=== PATIENT | female | born 1990 | race Caucasian/White ===

== ENCOUNTER 2021-11-27 08:29 | Emergency (ER) | payer OTHER, SELFPAY ==
[2021-11-27 08:52] VITALS: BP 123/75; PULSE 67; RESP 17; TEMP 36.4; O2SAT 96; BMI 25.8
--- NOTE | 2021-11-27 09:51 | ED_ITS ---
HPI - General Adult General Chief complaint: General Medical Stated complaint: Medication refill Time Seen by Provider: 11/27/21 09:11 Source: patient Mode of arrival: ambulatory History of Present Illness HPI narrative: 31-year-old female with past medical history of depression presenting to the ED for medication refill of Prozac 10 mg daily. Admits recently moved from [facility], has enough medication for today and tomorrow then will be out. Reports recently apply for [employer] and is trying to get PCP/therapist in the area. Denies SI/HI. Onset (ago): day(s) Related Data Previous Rx's Medication Instructions Recorded fluoxetine 10 mg capsule (Prozac) 10 mg PO DAILY #30 cap 11/27/21 Allergies Allergy/AdvReac Type Severity Reaction Status Date / Time No Known Allergies Allergy Verified 11/27/21 10:12 Review of Systems Review of Systems: Constitutional: No Fever, No Chills, No Fatigue, No Malaise ENT/Mouth: No Hearing loss, No Ear Pain, No Nasal Congestion, No Sinus Pain, No Hoarseness, No sore throat, No Rhinorrhea, No Swallowing Difficulty Eyes: No Eye Pain, No Swelling, No Redness Cardiovascular: No Chest Pain, No SOB, No Palpitations Respiratory: No Cough, No Dyspnea Gastrointestinal: No Nausea, No Vomiting, No Diarrhea, No Constipation, No Abdominal pain Genitourinary: No Dysuria, No Urinary Frequency, No Hematuria, No Flank Pain, No Urinary Flow Changes Musculoskeletal: No joint pain, No Myalgias Skin: No Skin Lesions, No rash Neuro: No Weakness, No Dizziness, No Headache Psych: No Anxiety/Panic, No Depression, No SI/HI/AH/VH Yes all other systems are reviewed and are negative [facility] Past Medical History Attestation statement: The following information was validated with the patient. Medical History Depression Social History Social History Advance Directives: No Advance Directives Information Provided: No Patient : No Physical Exam ED Vital Signs: Vital Signs - 24 hr 11/27/21 08:52 Temperature 97.5 F Pulse Rate 67 Respiratory Rate 17 Blood Pressure 123/75 Pulse Oximetry 96 BMI result Body Mass Index 25.8 Const General: cooperative, healthy appearing, no acute distress, alert and awake Orientation/consciousness: patient oriented x3 Limitations: no limitations HENMT Head: Yes normal to inspection and Yes atraumatic Ears: hearing grossly normal bilaterally General nose exam: Normal external nose present Face and sinus: Yes normal facial exam Eyes General: appearance normal, both eyes and all related structures EOM: EOMs intact bilaterally Neck Neck: Yes normal visual inspection and Yes no meningeal signs Resp Effort & Inspection: normal respiratory effort and no respiratory distress Cardio Rate: regular rate Heart sounds: S1 normal heart sound present and S2 normal heart sound present GI Inspection: Yes normal to inspection Skin Rashes: no rashes Wounds: no wounds Neuro General: patient oriented x3, tone normal and no meningeal signs Gait exam (Neuro): Normal gait present Extrem General: Yes normal to inspection Psych Appearance: grossly normal Mental Status: mental status grossly normal Speech and movement: Normal speech and movement present Affect: normal affect Attitude: cooperative Thought process: Normal thought process present Thought content: Normal thought content present Insight: Good insight present (Psych) Judgement: Good judgement present (Psych) Course Course Course Narrative: CARE team spoke with patient, patient is already taking proper steps & set her children up with PCP and can get an appointment with PCP at the end of December the soonest. Referral was made to [facility] Medical Decision Making [facility] Narrative Medical decision making narrative: 31-year-old female with past medical history of depression presenting to the ED for medication refill of Prozac 10 mg daily. On exam vital signs stable, NAD/nontoxic appearing, will touch base with care team to see if they can facilitate scheduling patient with therapist/psychiatrist in the area. Medical Records Medical records reviewed: Yes I reviewed the patient's medical records. Lab Data Lab results reviewed: Yes I reviewed the patient's lab results. Discharge Plan Discharge Clinical Impression: Medication refill Patient Disposition: Home, Self-Care Instructions: Medicine Refill (ED) Additional Instructions: Please call your primary care doctor for an appointment for her medication refills. A 30 day supply of Prozac was sent to [facility] on [address] If you have any thoughts of hurting herself or others please return to the emergency department Prescriptions: New fluoxetine [Prozac] 10 mg capsule 10 mg PO DAILY Qty: 30 0RF Referrals: [facility] [Provider Group] Puneet Cabrales MD [Physician] - Josefina Leal MD [Physician] -
--- NOTE | 2021-11-27 10:09 | MHC.CARE ---
CARE Team consulted to meet with Pt due to needing providers. Pt reports she recently relocated to [facility] and came to the ED because she ran out of medication (Prozac 10mg). Pt stated she has history of seeing a therapist at [facility] in [place] when she lived in this area. Pt stated she is going to go to [facility] for a PCP and they won't be able to get her in till the end of December. Pt reports her children will be going to [facility]. Pt would like a referral to see a therapist and gave t/w verbal persmisison to refer her to [facility].
--- NOTE | 2021-11-27 10:25 | PC.NURSE ---
CARE TEAM SPOKE WITH PATIENT ABOUT RESOURCES IN THE COMMUNITY AND THERAPISTS AVAILABLE. MOM BABY, BABY SMILING, [employer]GOR, REFLEXES INTACT, NAD.
== END 2021-11-27 10:27 | disposition home or self-care (01) ==
PROVIDERS: Emergency Provider Emergency Medicine Emergency Medical Services
DX: Z76.0 Encounter for issue of repeat prescription (principal); F33.1 Major depressive disorder, recurrent, moderate
CPT/HCPCS: 99283

== ENCOUNTER 2022-02-01 09:02 | Outpatient (REF) | payer OTHER, SELFPAY ==
[2022-02-01 14:39] LABS: CT PCR NOT DETECTED (Not Detect.); NG PCR NOT DETECTED (Not Detect.)
[2022-02-02 09:22] LABS: BV Int Neg Control Negative (Negative); BV Int Pos Control Positive (Positive)
[2022-02-04 06:46] LABS: HPV mRNA E6/E7 rflx Not Detected (Not Detected)
== END 2022-02-01 09:03 | disposition home or self-care (01) ==
LOC: HO.LAB 09:02
PROVIDERS: Advanced Practice Midwife; PCP Nurse Practitioner Family; Visit Provider Nurse Practitioner Family
DX: Z01.419 Encounter for gynecological examination (general) (routine) without abnormal findings (principal); Z11.51 Encounter for screening for human papillomavirus (HPV); Z20.2 Contact with and (suspected) exposure to infections with a predominantly sexual mode of transmission
CPT/HCPCS: 87480; 87491; 87510; 87591; 87624; 87660; 88142

== ENCOUNTER 2022-08-06 04:35 | Emergency (ER) | payer OTHER, SELFPAY ==
[2022-08-06 05:02] VITALS: BP 119/62; PULSE 77; RESP 20; TEMP 36.6; O2SAT 97; BMI 26.6
[2022-08-06 05:26] LABS: Appearance Urine Cloudy; Color Urine Yellow; Glucose Urine UA Negative (Negative); Leukocyte Esterase Urine Moderate (2+) (Negative); Nitrite Urine Negative (Negative); Specific Gravity - Urine >= 1.030 (1.005-1.025); UMIC TRIGGER UACC YES; Urine Blood Moderate (2+) (Negative); Urine Ketones Trace mg/dL (Negative); Urine Protein Trace mg/dL (Neg-Trace)
[2022-08-06 05:27] LABS: UPreg QC Valid YES; Urine Pregnancy NEGATIVE (NEGATIVE)
[2022-08-06 05:31] LABS: Bacteria Urine 1+ (None Seen); Hyaline Casts Urine 0-2 /LPF (0-2); UACC Culture Trigger YES; WBC Urine >50 /HPF (0-5)
--- NOTE | 2022-08-06 06:17 | PC.NURSE ---
Pt alert and oriented. c/o dysuria and darker appearance of urine. pt denies fever, chills, headache, radiating pain, no apparent distress
--- NOTE | 2022-08-06 06:39 | ED_ITS ---
HPI - Female Genitourinary General Chief complaint: Urogenital-Female Stated complaint: ?UTI Time Seen by Provider: 08/06/22 06:28 Source: patient Mode of arrival: ambulatory History of Present Illness HPI Narrative: 32-year-old female presents with pain and burning on urination since last night without associated nausea, vomiting, fever, chills, vaginal discharge. Related Data Previous Rx's Medication Instructions Recorded fluoxetine 10 mg capsule (Prozac) 10 mg PO DAILY #90 caps 12/29/21 nitrofurantoin 100 mg PO Q12H 5 days #10 caps 08/06/22 monohydrate/macrocrystals 100 mg capsule (Macrobid) Allergies Allergy/AdvReac Type Severity Reaction Status Date / Time No Known Allergies Allergy Verified 08/06/22 05:06 Review of Systems Review of Systems: Pertinent positives and negatives as stated in HPI. [facility] Past Medical History Source: nursing notes reviewed Medical History Depression History of depression Surgical History History of deviated nasal septum History of tubal ligation Family History Family History Father No problems noted. Mother No problems noted. Social History Social History Housing: Apartment Alcohol intake: never Patient Tobacco Use Status: Former Tobacco user Tobacco use type: Cigarette Smoked in Last 30 Days: No e-Cigarette/Vaping Use: Never Used Second Hand Smoke Exposure: No Use of substances other than those prescribed or required for medical reasons: No Advance Directives: No Advance Directives Information Provided: No Patient : No service: No Current occupational status: unemployed Sexual orientation: Straight/Heterosexual Gender identity: Female Cognitive needs: No Hearing needs: No Vision needs: No Physical Exam Vital Signs: Vital Signs: Last Vital Signs Temp 97.9 F 08/06/22 05:02 Pulse 77 08/06/22 05:02 Resp 20 08/06/22 05:02 BP 119/62 08/06/22 05:02 Pulse Ox 97 08/06/22 05:02 O2 Del Method 08/06/22 05:02 BMI result Body Mass Index 26.6 VITAL SIGNS: Reviewed. GENERAL: Well developed, well nourished, in no acute distress. HEAD: Normocephalic/atraumatic EYES: PERRLA, EOMI LUNGS: Normal breath sounds. CARDIOVASCULAR: Regular rate and rhythm without noted murmurs ABDOMEN: Soft, non-tender, non-distended with bowel sounds. NEUROLOGIC: Alert and oriented x 4. Medical Decision Making Medical Decision Making MDM Narrative: 32-year-old female with history and clinical presentation most consistent with uncomplicated UTI and I reviewed do the urinalysis results which demonstrate leukocyte esterase with presence of wbc's. She will receive her 1st dose here in the emergency room and then the remaining prescription will be sent to her pharmacy Lab Data Labs: Lab Results 08/06/22 08/06/22 Range/Units 05:16 05:16 Urine Color Yellow Urine Appearance Cloudy Urine pH 6.0 (5.0-9.0) Ur Specific Cutler >= 1.030 H (1.005-1.025) Urine Protein Trace (Neg-Trace) mg/dL Urine Glucose (UA) Negative (Negative) mg/dL Urine Ketones Trace (Negative) mg/dL Urine Blood Moderate (2+) H (Negative) Urine Nitrite Negative (Negative) Ur Leukocyte Esterase Moderate (2+) H (Negative) Urine RBC 11-20 H (0-2) /HPF Urine WBC >50 H (0-5) /HPF Ur Squamous Epith Cells 6-10 (0-2) /HPF Urine Bacteria 1+ (None Seen) Hyaline Casts 0-2 (0-2) /LPF Urine Test NEGATIVE (NEGATIVE) Discharge Plan Discharge Clinical Impression: UTI (urinary tract infection) Patient Disposition: Home, Self-Care Instructions: Urinary Tract Infection in Women (ED) Additional Instructions: Complete the entire course of antibiotics as prescribed. Return to the ER for any worsening of symptoms. Prescriptions: New nitrofurantoin monohyd/m-cryst [Macrobid] 100 mg capsule 100 mg PO Q12H 5 Days Qty: 10 0RF Rx Instructions: must administer with a meal/food No Action fluoxetine [Prozac] 10 mg capsule 10 mg PO DAILY Qty: 90 1RF
[2022-08-06] MEDS: Nitrofurantoin Monohyd/M-Cryst 100 MG CAPSULE PO (07:09)
== END 2022-08-06 07:15 | disposition home or self-care (01) ==
PROVIDERS: Emergency Provider Student in an Organized Health Care Education/Training Program
DX: N39.0 Urinary tract infection, site not specified (principal); Z79.899 Other long term (current) drug therapy
CPT/HCPCS: 81001; 81025; 87086; 99283; 99284

== ENCOUNTER 2023-03-01 11:21 | Outpatient (REF) | payer OTHER, SELFPAY | END 2023-03-01 11:22 | disposition home or self-care (01) | LOC: HO.LNP 11:21 | PROVIDERS: PCP Nurse Practitioner Family; Visit Provider Advanced Practice Midwife | DX: Z13.89 Encounter for screening for other disorder (principal) ==

== ENCOUNTER 2023-03-01 11:21 | Outpatient (AMB) | payer OTHER, SELFPAY ==
[2023-03-01 11:22] VITALS: BP 122/66; BMI 29.6
--- NOTE | 2023-03-01 11:22 | MHC.OFFVIS ---
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 Scribed for REYMUNDO Mora by Cheryl Lenz medical safety director, on 03/01/2023 at 11:34 am EST. Composing Room Machinist: Composing Room Machinist Present (Marielena) Allergies No Known Allergies Allergy (Verified 03/01/23 11:25) Is last menstrual period known: Yes Last menstrual period: 02/12/23 HPI HPI Comments History of Present Illness Details She is a premenopausal woman presenting for annual exam. She is concenred about several skin tags that she would like to have removed. She has a dermatology appt. booked. She admits to not eating as well as she had in the past, plans to improve her diet and to start exercising. Currently sexually active. Her and her partner are interested in future options despite having a tubal. Denies vaginal itching and irritation. STD screening offered; she accepts. Denies family hx of breast, colon and ovarian cancer. Last pap smear 02/01/22. Reports she quit smoking PFSH Medical History Depression History of depression Surgical History History of deviated nasal septum History of tubal ligation Family History Father No problems noted. Mother No problems noted. Social History Housing: Apartment Alcohol intake: never Patient Tobacco Use Status: Former Tobacco user Tobacco use type: Cigarette e-Cigarette/Vaping Use: Never Used Second Hand Smoke Exposure: No service: No Current occupational status: unemployed Sexual orientation: Straight/Heterosexual Gender identity: Female Cognitive needs: No Hearing needs: No Vision needs: No Female Reproductive History Menstrual Duration of menses: 6-7 days Date of last menstrual period: 02/12/23 control method: permanent sterilization Permanent Sterilization: BTL Total pregnancies: 3 Full term: 2 Number of Living Children: 2 Date of last pap smear: 02/01/22 (neg pap and hpv) Physical Exam Vital Signs: Last Vital Signs BP 122/66 03/01/23 11:22 BMI result Body Mass Index 29.6 Const General: cooperative, healthy appearing, no acute distress, well developed and alert Orientation/consciousness: patient oriented x3 HEENT Head: Yes normal to inspection Eyes General: appearance normal, both eyes and all related structures Neck Neck: Yes normal visual inspection Thyroid: Thyroid normal Chest Chest palpation & inspection: normal inspection of the chest Breast/axilla inspection: normal inspection of the breasts (no puckering, dimpling, peau de orange, retraction, discharge, masses) Breast/axilla palpation: normal palpation of the breasts Resp Effort & Inspection: normal respiratory effort GI Inspection: Yes normal to inspection Palpation (GI): Soft to palpation (to palpation) Rectal Exam - Female: deferred Other: 2 small 2-3 mm skin tags on right gluteal area. General: Yes bladder normal to inspection External Female Exam: normal external appearance and normal appearance of the urethra Speculum Exam - Vagina: normal appearance of the vagina, normal palpation and normal vaginal discharge Speculum Exam - Cervix: normal appearance of the cervix and normal palpation Bimanual exam- vagina & uterus: normal palpation and normal palpation Bimanual Exam- Adnexa, other: normal adnexae and no masses Skin General skin exam: no rashes or lesions noted Neuro General: patient oriented x3 Cognition (Neuro): normal cognition Extrem General: Yes normal to inspection Psych Attitude: cooperative Thought process: Normal thought process present Assessment & Plan Assessment & Plan (1) Encounter for well woman exam: Code(s): Z01.419 - Encounter for gynecological examination (general) (routine) without abnormal findings Plan: Discussed: Current recommendations for pap smears per ASCCP guidelines Breast awareness and periodic self breast exams. Maintaining a healthy lifestyle including a well balanced diet and routine exercise. Recommended consulting with infertility specialist regarding different birthing options with a tubal, reversals are not covered by insurance. BV testing, STD blood work and GC/CT panel today. Await results and treat accordingly. Follow up with Dermatology for skin tags, most likely a cosmetic procedure and not covered by insurance. All of her questions and concerns were addressed to the best of my ability. RTO in one year for AG. Orders: Orders Hepatitis B Core Antibody Today Z20.2 - Contact with and (suspected) exposure to infections with a predominantly sexual mode of transmission Hepatitis C Antibody Today Z20.2 - Contact with and (suspected) exposure to infections with a predominantly sexual mode of transmission HIV Ab/Ag Today Z20.2 - Contact with and (suspected) exposure to infections with a predominantly sexual mode of transmission Syphilis Screen Today Z20.2 - Contact with and (suspected) exposure to infections with a predominantly sexual mode of transmission CT NG by PCR Today Z20.2 - Contact with and (suspected) exposure to infections with a predominantly sexual mode of transmission Coding Level of Care Code Est Pt Prev Care [id number]([id number]) Diagnoses Encounter for well woman exam Z01.419
== END 2023-03-01 11:47 | disposition home or self-care (01) ==
LOC: HO.HWS 11:21
PROVIDERS: PCP Nurse Practitioner Family; Visit Provider Advanced Practice Midwife
DX: Z01.419 Encounter for gynecological examination (general) (routine) without abnormal findings (principal)
CPT/HCPCS: 99395

== ENCOUNTER 2023-03-01 11:51 | Outpatient (REF) | payer OTHER, SELFPAY ==
[2023-03-01 18:42] LABS: CT PCR NOT DETECTED (Not Detect.); NG PCR NOT DETECTED (Not Detect.)
[2023-03-02 08:42] LABS: HBc Num1 0.07 S/CO (0.00-0.79); HIV AB/AG Nonreactive (Nonreactive); HIV Num 1 0.06 S/CO (0.00-0.99); Hepatitis B Core Antibody Nonreactive (Nonreactive); ~HepC Num1 0.22 S/CO (0.00-0.79); ~Hepatitis C Antibody Nonreactive (Nonreactive)
[2023-03-02 08:54] LABS: Syphilis Screen Nonreactive (Nonreactive)
== END 2023-03-01 11:52 | disposition home or self-care (01) ==
LOC: HO.LAB 11:51
PROVIDERS: PCP Internal Medicine; Visit Provider Advanced Practice Midwife
DX: Z11.4 Encounter for screening for human immunodeficiency virus [HIV] (principal); Z20.2 Contact with and (suspected) exposure to infections with a predominantly sexual mode of transmission
CPT/HCPCS: 0353U; 86704; 86780; 86803; 87389

== ENCOUNTER 2023-09-09 09:51 | Outpatient (AMB) | payer OTHER, SELFPAY ==
[2023-09-09 09:51] VITALS: BP 98/80; PULSE 69; O2SAT 98; BMI 31.0
--- NOTE | 2023-09-09 09:51 | MHC.PC.OV ---
Vital Signs 09/09/23 09:51 Height 5 ft 7 in Weight 198 lb 4 oz BMI 31.0 BP 98/80 Blood Pressure Location Lt brachial Position Sitting Pulse 69 Pulse Source Pulse Oximeter Pulse Oximetry (%) 98 Oxygen Delivery Method Room Air Intake Visit Reasons: office visit Assistant Product Manager Required: No Accompanied by: Self / Same As Patient Allergies No Known Allergies Allergy (Verified 09/09/23 10:18) Medication List - Last Reconciled 09/09/23 by Pablo Combs MD No Known Home Meds Tobacco use date assessed: 09/09/23 Dental Screening Dental Screen Date: 09/09/23 Did you have a dental visit in the last 12 months?: Yes Did you have a dental problem in the last 6 months where you did not have access to dental care?: No Was dental information given to patient?: Patient has dentist HPI office visit HPI Details Patient comes in today for her follow up visit - was last seen by PCP in December 2021 States that she's had some issues with her eyes recently that she would like to have addressed States that both of her upper eyelids often feel very heavy and she feels that they sag and droop down too much over her eyes and is affecting her eyesight and vision She did have her eyelashes done yesterday but states that it made no difference as to how her eyes feel She also reports that she's had some blurring of her vision for years and wears corrective lenses but it has been a while since she had her eyes checked and would like to request for a referral to see an eye doctor for the above eye issues States that the one she used to see a few years ago is no longer accepting her insurance Adds that she had a tubal ligation done a few years ago while she was still residing in [place] but would like to see someone about having her tubal ligation reversed as she and her fiance are currently thinking about having another child She is currently not taking any prescription medications and has no other acute issues at present [facility] Medical History (Updated 09/09/23 @ 12:52 by Pablo Combs MD) Obesity (BMI 30-39.9) Overweight (BMI 25.0-29.9) History of depression Depression Surgical History (Updated 09/09/23 @ 12:44 by Pablo Combs MD) History of deviated nasal septum History of tubal ligation Family History Father No problems noted. Mother No problems noted. Social History Housing: Apartment Alcohol intake: never Patient Tobacco Use Status: Former Tobacco user Tobacco use type: Cigarette e-Cigarette/Vaping Use: Never Used Second Hand Smoke Exposure: No service: No Current occupational status: unemployed Sexual orientation: Straight/Heterosexual Gender identity: Female Cognitive needs: No Hearing needs: No Vision needs: No Questionnaire PHQ-9 Over the last 2 weeks, how often have you been bothered by any of the following problems? 1. Little interest or pleasure in doing things: not at all 2. Feeling down, depressed, or hopeless: not at all 3. Trouble falling or staying asleep, or sleeping too much: not at all 4. Feeling tired or having little energy: not at all 5. Poor appetite or overeating: not at all 6. Feeling bad about yourself - or that you are a failure or have let yourself or your family down: not at all 7. Trouble concentrating on things, such as reading the newspaper or watching television: nearly every day 8. Moving or speaking so slowly that other people could have noticed. Or the opposite - being so fidgety or restless that you have been moving around a lot more than usual: not at all 9. Thoughts that you would be better off or of hurting yourself in some way: not at all Total score: 3 Depression Screening Interpretation: Negative Depression Screening Done: Yes 10310 - PHQ-9 Billing: Yes Source: Developed by Drs. Farhat Lopez, Anyi Bagley, Dajuan Gore and colleagues, with an educational leigh ann from [employer]. Thrive Questionnaire Date Thrive assessed: 09/09/23 I am a: Patient What is your living situation today?: I have a steady place to live Within the past 12 months, did the food you bought not last and you didn't have the money to get more?: Never true Within the past 12 months, did you worry whether your food would run out before you got money to buy more?: Never true Do you have trouble paying for medicines?: No Do you have trouble getting transportation to medical appointments?: No Do you have trouble paying your heating and electricity bill?: No Do you have trouble taking care of your child, family member or friend?: No Do you have trouble with day-to-day activities such as bathing, preparing meals, shopping, managing finances, etc.?: No Are you currently unemployed and looking for a job?: No Are you interested in more education?: No Please select the resources that you would like help with: None Currently or been in a relationship where the following occur: no concerns reported THRIVE Score: 0 AUDIT C Alcohol Use Questionnaire (AUDIT-C) 1. How often do you have a drink containing alcohol?: Never Total Score: 0 Score Reviewed/Action Taken: Yes JACINDA-7 AMB Questionnaire JACINDA-7 Date JACINDA - 7 assessed: 09/09/23 Feeling nervous, anxious, or on edge: 1 = Several days Not being able to stop or control worryin = Not at all Worrying too much about different things: 0 = Not at all Trouble relaxin = Not at all Being so restless that it is hard to sit still: 0 = Not at all Becoming easily annoyed or irritable: 1 = Several days Feeling afraid as if something awful might happen: 0 = Not at all Total JACINDA-7 score (0-4 normal; 5-9 mild; 10-14 moderate; 15-21 severe): 2 Source: Developed by Drs. Farhat Lopez, Anyi Bagley, Dajuan Gore and colleagues, with an educational leigh ann from [employer]. JACINDA-7 Assessment Billing JACINDA-7 Assessment Tool: JACINDA-7 Assessment 43130 Review of Systems Const Denies fatigue, Denies fever(s) and Denies headache(s) Eyes Details: heavy and droopy sensation of both upper eyelids - see HPI Reports blurry vision ENT Denies dysphagia, Denies dizziness, Denies otalgia, Denies headache(s), Denies neck pain, Denies odynophagia and Denies sore throat Card Denies chest pain, Denies palpitations and Denies dyspnea Resp Denies cough and Denies dyspnea GI Denies abdominal pain, Denies constipation, Denies dysphagia, Denies heartburn, Denies diarrhea, Denies nausea, Denies odynophagia and Denies vomiting Denies difficulty voiding, Denies nocturia, Denies dysuria and Denies urinary urgency Musc Denies back pain and Denies neck pain Skin/Breast Denies rash Neuro Denies dizziness and Denies headache(s) Endo Denies fatigue and Denies palpitations Physical exam (Primary Care) Vital Signs: Last Vital Signs Pulse 69 09/09/23 09:51 BP 98/80 09/09/23 09:51 Pulse Ox 98 09/09/23 09:51 Oxygen Delivery Method Room Air 09/09/23 09:51 BMI result Body Mass Index 31.0 Tobacco/Smoking Status: Tobacco use Status Tobacco use date assessed 09/09/23 09/09/23 09:57 Patient Tobacco Use Status Former Tobacco user 09/09/23 09:57 Tobacco use type Cigarette 09/09/23 09:57 e-Cigarette/Vaping Use Never Used 09/09/23 09:57 PHQ-9: PHQ-9 Score PHQ-9: Total score 3 09/09/23 09:57 Depression Screening Interpretation: Negative Thrive Assessment: Date of Thrive Assessment Date Thrive assessed 09/09/23 09/09/23 09:57 Currently or been in a relationship where the following occur: no concerns reported Const General: no acute distress and alert Eyes Eyelids: Yes eyelid abnormality (both upper eyelids appear droopy) Conjunctivae: conjunctivae normal Pupils: Equal, round and reactive pupils present EOM: EOMs intact bilaterally Neck Neck: Yes no lymphadenopathy and Yes supple Resp Auscultation: clear to auscultation bilaterally, no rales and no wheezes Cardio Rate: regular rate Rhythm: regular rhythm Heart sounds: no murmurs GI Palpation (GI): Soft to palpation and nontender Auscultation: normal bowel sounds Neuro Cranial nerves: Yes Equal, round and reactive pupils present Extrem General: Yes no clubbing, cyanosis or edema Assessment and Plan Assessment & Plan (1) Droopy eyelid: Code(s): H02.409 - Unspecified ptosis of unspecified eyelid Qualifiers: Laterality: bilateral Qualified Code(s): H02.403 - Unspecified ptosis of bilateral eyelids Plan: Per request, will refer her to ophthalmology for further evaluation and management and consideration for blepharoplasty (2) Blurring of vision: Code(s): H53.8 - Other visual disturbances Plan: Will refer her to ophthalmology for further evaluation/follow up and management of her vision issues (3) History of tubal ligation: Comment: done in [place] a few years ago Code(s): Z98.51 - Tubal ligation status Plan: Will refer her to OB-Gynecology to consider reversing her tubal ligation, per request (4) Obesity (BMI 30-39.9): Code(s): E66.9 - Obesity, unspecified Plan: Discussed diet/exercise/weight loss Will send her for some labs for further evaluation, including her thyroid status Plan To return in December 2023 for her annual physical examination with her PCP Orders: Orders Complete Blood Count Auto Diff Today D64.9 - Anemia, unspecified, R53.83 - Other fatigue, R63.5 - Abnormal weight gain Comprehensive Met. Panel Today R53.83 - Other fatigue, R63.5 - Abnormal weight gain TSH reflex Free T4 Today R53.83 - Other fatigue, R63.5 - Abnormal weight gain Referrals Ophthalmology Referral H02.409 - Unspecified ptosis of unspecified eyelid, H02.9 - Unspecified disorder of eyelid, H53.8 - Other visual disturbances THREAD WEAVER Referral Z98.51 - Tubal ligation status Coding Level of Care Code Est Pt Level 4 (70800) Diagnoses Ptosis of both eyelids H02.403 Laterality: bilateral Blurring of vision H53.8 History of tubal ligation Z98.51 Obesity (BMI 30-39.9) E66.9 Additional Codes JACINDA-7 Assessment Billing - JACINDA-7 Assessment Tool: JACINDA-7 Assessment 20494 ([id number])
== END 2023-09-09 10:34 | disposition home or self-care (01) ==
PROVIDERS: PCP Internal Medicine; Visit Provider Internal Medicine
DX: H02.403 Unspecified ptosis of bilateral eyelids (principal); Z87.891 Personal history of nicotine dependence; Z68.31 Body mass index [BMI] 31.0-31.9, adult; E66.9 Obesity, unspecified; H53.8 Other visual disturbances; Z98.51 Tubal ligation status
CPT/HCPCS: 99214

== ENCOUNTER 2023-09-09 10:42 | Outpatient (REF) | payer OTHER, SELFPAY ==
[2023-09-09 10:59] LABS: MANUAL DIFF FLAG NO
[2023-09-09 11:58] LABS: Basophils Percent Auto 0.3 % (0-2); Eosinophils Absolute Auto 0.4 X10*3/uL (0.0-0.4); Eosinophils Percent Auto 4.3 % (0-4); Hematocrit 42.5 % (37.0-47.0); Hemoglobin 14.1 g/dl (12.0-16.0); Imm Gran Abs Auto 0.02 X10*3/uL (0.00-0.03); Imm Gran Pct Auto 0.2 % (0.0-0.4); Lymphocytes Percent Auto 21.8 % (20-40); Mean Corpuscular HGB Conc 33.2 g/dl (31.0-35.0); Mean Corpuscular Hemoglobin 29.5 pg (27.0-33.0); Mean Corpuscular Volume 88.9 fL (80.0-98.0); Mean Platelet Volume 10.5 fL (9.4-12.3); Monocytes Absolute Auto 0.6 X10*3/uL (0.1-1.2); Monocytes Percent Auto 5.9 % (2-11); Neutrophils Absolute Auto 6.3 x10*3/uL (2.0-8.3); Neutrophils Percent Auto 67.5 % (45-73); Platelet Count 224 X10*3/uL (160-400); Red Blood Count 4.78 X10*6/uL (4.20-5.50); White Blood Count 9.4 X10*3/uL (4.8-10.8)
[2023-09-09 12:44] LABS: Alanine Aminotransferase 16 U/L (0-31); Albumin Level 4.2 g/dL (3.5-5.0); Alkaline Phosphatase 60 U/L (39-117); Anion Gap 12 (12-20); Aspartate Amino Transferase 17 U/L (5-31); Bilirubin Total 0.3 mg/dL (0.0-1.0); Blood Urea Nitrogen 13 mg/dL (9-16); Calcium 9.5 mg/dL (8.4-10.2); Carbon Dioxide 26 mmol/L (22-29); Chloride 105 mmol/L (96-108); Estimated Glomerular Filt Rate > 60; Glucose Random 75 mg/dL (60-115); Sodium 139 mmol/L (135-145); Total Protein 7.4 g/dL (6.5-8.0)
[2023-09-09 13:00] LABS: TSH reflex Free T4 0.97 uIU/mL (0.32-4.0)
== END 2023-09-09 10:43 | disposition home or self-care (01) ==
LOC: HO.LAB 10:42
PROVIDERS: PCP Internal Medicine; Visit Provider Internal Medicine
DX: R53.83 Other fatigue (principal); R63.5 Abnormal weight gain; D64.9 Anemia, unspecified
CPT/HCPCS: 36415; 80053; 84443; 85025